=== PATIENT | male | born 1990 | race Caucasian/White ===

== ENCOUNTER 2019-09-03 07:13 | Emergency (ER) | payer OTHER ==
[~2019-09-03] VITALS: Ht 172.7 cm; Wt 81.8 kg
[2019-09-03] MEDS ORDERED: KETOROLAC 60 MG/2 ML VIAL (J1885) IM ONE (07:45)
--- NOTE | 2019-09-03 08:07 | REP ---
Clinical: Trauma. Technique: AP, lateral, bilateral oblique and sunrise views right knee . Findings: The osseous structures and joint spaces are intact and normal. There is no evidence for acute fracture or dislocation. No joint effusion is appreciated. Surrounding soft tissues are unremarkable. No subcutaneous emphysema or radiodense foreign body. Impression: Normal examination. No acute fracture or dislocation. Electronically Signed by Neal Duenas MD 09/03/2019 07:58 A
[2019-09-03 08:35] VITALS: BP 140/98
== END 2019-09-03 08:34 | disposition home or self-care (01) ==
LOC: M ED 07:13
DX: M25.561 Pain in right knee (principal)
CPT/HCPCS: 73564; 96372; 99284; J1885

== ENCOUNTER 2021-05-27 08:14 | Emergency (ER) | payer OTHER ==
[~2021-05-27] VITALS: Ht 175.3 cm; Wt 82.2 kg
[2021-05-27 08:14] VITALS: BP 134/97
== END 2021-05-27 09:35 | disposition left against medical advice (07) ==
LOC: M ED 08:14
DX: Z53.21 Procedure and treatment not carried out due to patient leaving prior to being seen by health care provider (principal)